=== PATIENT | female | born 1990 ===

== ENCOUNTER 2018-06-06 23:12 | Emergency (ER) | payer SELFPAY ==
[2018-06-06 23:31] VITALS: RESP 18; TEMP 98.4
[2018-06-07 02:11] VITALS: BP 118/62; PULSE 75; O2SAT 100
--- NOTE | 2018-06-07 09:44 | ED PDOC ---
Arrival/HPI - General Chief Complaint: Trauma Time Seen by Provider: 06/06/18 23:27 Historian: Patient - History of Present Illness Narrative History of Present Illness (Text): 28 y/o 10 week female presents to the ED c/o left elbow pain s/p fall this evening. Pt was mopping the floor when she slipped and fell on her left side. Denies head strike or LOC. No vaginal bleeding or abdominal pain. Has not taken any medication for pain. Denies numbness, weakness, paresthesias, open wounds, or any other associated complaints. Past Medical History - Provider Review Nursing Documentation Reviewed: Yes - Infectious Disease Hx of Infectious Diseases: None - Reproductive Menopause: No - Cardiac Hx Cardiac Disorders: No - Pulmonary Hx Respiratory Disorders: No - Psychiatric Hx Substance Use: No Family/Social History - Physician Review Nursing Documentation Reviewed: Yes Family/Social History: No Known Family HX Smoking Status: Never Smoked Hx Alcohol Use: No Hx Substance Use: No Allergies/Home Meds Allergies/Adverse Reactions: Allergies No Known Allergies Allergy (Verified 06/06/18 23:31) Review of Systems - Review of Systems Constitutional: Normal. absent: Fatigue, Fevers Eyes: Normal. absent: Vision Changes, Photophobia Respiratory: Normal. absent: SOB, Cough Cardiovascular: Normal. absent: Chest Pain, Palpitations Gastrointestinal: Normal. absent: Abdominal Pain, Nausea, Vomiting Genitourinary Female: Normal. absent: Dysuria, Frequency Musculoskeletal: Other (left elbow pain) Skin: Normal. absent: Rash, Skin Lesions, Laceration Neurological: Normal. absent: Headache, Dizziness Physical Exam Vital Signs Reviewed: Yes Vital Signs Temp Pulse Resp BP Pulse Ox 06/07/18 01:00 75 18 118/62 100 06/06/18 23:30 98.4 F 76 18 115/69 98 Temperature: Afebrile Blood Pressure: Normal Pulse: Regular Respiratory Rate: Normal Appearance: Positive for: Well-Appearing, Non-Toxic, Comfortable Pain Distress: None Mental Status: Positive for: Alert and Oriented X 3 - Systems Exam Head: Present: Atraumatic, Normocephalic Pupils: Present: PERRL Extroacular Muscles: Present: EOMI Conjunctiva: Present: Normal Mouth: Present: Moist Mucous Membranes Neck: Present: Normal Range of Motion. No: Meningeal Signs, MIDLINE TENDERNESS Respiratory/Chest: Present: Clear to Auscultation, Good Air Exchange. No: Respiratory Distress, Accessory Muscle Use Cardiovascular: Present: Regular Rate and Rhythm, Normal S1, S2, Peripheal Pulses Present Abdomen: Present: Normal Bowel Sounds. No: Tenderness, Distention, Peritoneal Signs Back: Present: Normal Inspection. No: Midline Tenderness, Paraspinal Tenderness Upper Extremity: Present: Normal Inspection, NORMAL PULSES, Tenderness (posterior lateral left elbow), Neurovascularly Intact, Capillary Refill < 2s. No: Cyanosis, Edema, Normal ROM (decreased flexion at left elbow, but able to fully extend), Swelling, Temperature Abnormalties, Deformity Lower Extremity: Present: Normal Inspection, Normal ROM Neurological: Present: GCS=15, CN II-XII Intact, Speech Normal, Motor Func Grossly Intact, Normal Sensory Function, Gait Normal Skin: Present: Warm, Dry, Normal Color. No: Rashes Psychiatric: Present: Alert, Oriented x 3, Normal Insight, Normal Concentration, Normal Affect, Normal Mood Medical Decision Making ED Course and Treatment: Initial Plan: * Left elbow Xray with consent Patient refuses left elbow Xray. Informed refusal form signed after risks vs benefits discussed with patient. Translated by boyienmaia with patients consent. Patient placed in left posterior long arm splint by automotive repair technician claudia. Neurovascular exam remains unchanged. Advised orthopedic and OB followup tomorrow. Diagnostic testing results and plan of care discussed with patient. Strict instructions given regarding prescription use, importance of followup, and signs/symptoms to return to ER including abdominal pain, vaginal bleeding, numbness, paresthesias, or any other new/worsening symptoms. Pt verbalized understanding of discussion. Patient is A&Ox3, ambulating with steady gait, with vital signs stable for discharge. - Medication Orders Current Medication Orders: Discontinued Medications Acetaminophen (Tylenol 325mg Tab) 650 mg PO STAT STA Stop: 06/07/18 00:36 Last Admin: 06/07/18 00:40 Dose: 650 mg MAR Pain/Vitals Document 06/07/18 00:40 AD (Rec: 06/07/18 00:59 AD [facility]-ER-20) Location Left, Right or Bilateral Left Pain Location Body Site Elbow Disposition/Present on Arrival - Present on Arrival Any Indicators Present on Arrival: No History of DVT/PE: No History of Uncontrolled Diabetes: No Urinary Catheter: No History of Decub. Ulcer: No History Surgical Site Infection Following: None - Disposition Have Diagnosis and Disposition been Completed?: Yes Diagnosis: Fall, Elbow pain, left Disposition: HOME/ ROUTINE Disposition Time: 00:30 Patient Plan: Discharge Condition: STABLE Discharge Instructions (ExitCare): Preventing Falls Print Language: [place] Additional Instructions: Tylenol milla sea necesario para el dolor Mantenga la frula hasta el seguimiento. Regrese a la leilani de emergencias con cualquier sntoma nuevo o que empeore. Seguimiento con gineclogo dentro de 2 gupta Seguimiento con PMD dentro de 2 gupta Seguimiento con ortopedia maana. Regrese a la leilani de emergencias con cualquier sntoma nuevo o que empeore. Prescriptions: Pnv No.95/Ferrous Fum/Folic AC [ Caplet] 1 each PO DAILY #30 tablet Referrals: at [facility] [Outside] - Follow up with primary Maribel Valencia MD [Staff Provider] - Follow up with primary Ross Garay DO [Staff Provider] - Follow up with primary Dayana Gamez MD [Medical Doctor] - Follow up with primary Forms: [employer] (Spanish), WORK NOTE
== END 2018-06-07 01:00 | disposition home or self-care (01) ==
LOC: ED 23:12
DX: M25.522 Pain in left elbow (principal); W01.0XXA Fall on same level from slipping, tripping and stumbling without subsequent striking against object, initial encounter; Y93.E5 Activity, floor mopping and cleaning; O26.91 Pregnancy related conditions, unspecified, first trimester; Z3A.10 10 weeks gestation of pregnancy